=== PATIENT | male | born 1965 | race Caucasian/White ===

== ENCOUNTER 2020-03-09 12:30 | Emergency (ER) | payer MEDICAID, SELFPAY ==
[~2020-03-09 12:30] MED LIST: Dextrose 5 % And 0.9 % NaCl 1000 ml Bag ONE; Iopamidol 370 76% 100 ML VIAL ONE; Sodium Chloride 0.9% 1,000 ML BAG ONE
[2020-03-09 14:07] LABS: #Basophils 0.1 thou/uL (0.0-0.2); #Eosinphils 0.1 thou/uL (0.0-0.7); #Lymphocytes 1.4 thou/uL (1.20-3.40); #Monocytes 0.9 thou/uL (0.11-0.59); #Neutrophils 11.8 thou/uL (1.40-6.50); %Basophils 0.7 % (0.0-1.0); %Eosinophils 0.4 % (0.0-10.0); %Lymphocytes 9.6 % (21.0-51.0); %Monocytes 6.1 % (0.0-10.0); %Neutrophils 83.2 % (42.0-75.0); Hemoglobin 17.6 g/dL (14.0-18.0); Mean Corpuscular HGB CONC 31.8 g/dL (32.0-36.0); Mean Corpuscular Hemoglobin 31.8 pg (27.0-31.0); Mean Platelet Volume 6.8 fL (7.4-10.4); Platelet Count 273 thou/uL (130-400); RBC Distribution Width 12.6 % (11.5-14.5); Red Blood Cell (RBC) Count 5.54 mill/uL (4.70-6.10); White Blood Cell (WBC) Count 14.2 thou/uL (4.8-10.8)
--- NOTE | 2020-03-09 14:08 | RAD ---
EXAM: Single view of the chest HISTORY: Cough COMPARISON: None FINDINGS: Single view of the chest shows a normal sized cardiomediastinal silhouette. Hyperexpansion of the lungs is likely secondary to COPD. Emphysematous changes are seen in the lung apices. There is no evidence of consolidation, mass, or pleural effusion. The bones are unremarkable IMPRESSION: No evidence of acute cardiopulmonary disease
[2020-03-09 14:21] LABS: ALT (SGPT) 9 U/L (8-55); AST (SGOT) 15 U/L (5-34); Albumin 3.9 g/dL (3.5-5.0); Alkaline Phosphatase 243 U/L (40-110); Anion Gap 15 mmol/L (10-20); BUN (Urea Nitrogen) 8 mg/dL (8.4-25.7); Bilirubin, Total 0.7 mg/dL (0.2-1.2); Calc. Creatinine Clearance 0 mL/min (70-130); Calcium 10.3 mg/dL (7.8-10.44); Carbon Dioxide 27 mmol/L (22-29); Chloride 101 mmol/L (98-107); Globulin 3.3 g/dL (2.4-3.5); Glucose 105 mg/dL (70-105); Potassium 4.1 mmol/L (3.5-5.1); Protein, Total 7.2 g/dL (6.0-8.3); Sodium 139 mmol/L (136-145)
--- NOTE | 2020-03-09 15:35 | CT ---
EXAM: CT of the chest without contrast HISTORY: Cough COMPARISON: None TECHNIQUE: Multiple contiguous axial images were obtained in a CT the chest without contrast. Coronal and sagittal reformats were performed. FINDINGS: HEART: Normal in size without focal cardiac abnormality. Atherosclerotic calcifications in the monterro[place] ry arteries and aorta. MEDIASTINUM: No hilar or mediastinal lymphadenopathy. Evaluation of the mediastinum is limited withou t IV contrast. LUNGS: Severe emphysematous changes are seen. A calcified granuloma is seen in the left apex. No foca l infiltrates, suspicious nodules, or suspicious masses. PLEURAL SPACE: No pneumothorax or pleural effusion. CHEST WALL SOFT TISSUES: Unremarkable OSSEOUS STRUCTURES: Degenerative changes in the spine. VISUALIZED SUBDIAPHRAGMATIC STRUCTURES: Unremarkable IMPRESSION: Severe emphysema without evidence of acute intrathoracic abnormality.
[2020-03-09 15:52] LABS: Bilirubin Small (Negative); Blood, Urine Negative (Negative); Glucose, Urine (Dipstick) Negative (Negative); Ketone, Urine Trace mg/dL (Negative); Leukocyte Negative (Negative); Nitrite Negative (Negative); Protein, Urine (Dipstick) Negative (Neg-Trace); Urobilinogen 0.2 mg/dL (Less than 2)
[2020-03-09 16:08] LABS: Clarity Hazy (Clear)
--- NOTE | 2020-03-09 16:34 | CT ---
CT NECK WITH CONTRAST: 03/09/20 INDICATION: Unable to swallow. History of neck cancer. There are no comparison studies. FINDINGS: Parotid glands and submandibular glands appear symmetric. Thyroid unremarkable. Nasopharynx unremarka ble. Base of tongue unremarkable. Jelm tonsils unremarkable. In the hypopharynx there is diffuse mucosal enhancement with associated mass involving the vallecula, aryepiglottic folds, and epiglottis. This enhancing mass extends inferiorly into the supraglottic r egion and to the larynx possibly involving the vocal cords. This mass appears to erode through the th yroid cartilage anteriorly on the right and extends into the subcutaneous tissues of the right neck a long the outer portion of the right thyroid cartilage. There is parapharyngeal edema and retropharyngeal edema in the hypopharynx. This results in airway na rrowing in the hypopharynx and supraglottic regions. There is pathologic adenopathy on the left with a large pathologic lymph node at level II on the left measuring 3 to 4 cm AP dimension. Prominent hypertrophic degenerative changes of the cervical spine seen with large bridging osteophyte throughout the cervical vertebrae. The paranasal sinuses appear c lear as visualized. IMPRESSION: Abnormal mucosal enhancement and associated heterogeneous mass involving the hypopharynx beginning at the vallecula and involving the aryepiglottic folds and epiglottis and extending inferiorly surround ing the parapharyngeal space and encompassing the supraglottic region and larynx. There appears to b e involvement of vocal cords. Extensive of this enhancing mass through the thyroid cartilage anterior ly on the right. Findings are consistent with recurrent and/or progression of neoplasm given history of neck cancer. There is associated pathologic adenopathy on the left. POS: AGW
== END 2020-03-09 17:05 | disposition short-term general hospital (02) ==
LOC: MADERS 12:30
DX: C14.0 Malignant neoplasm of pharynx, unspecified (principal); J43.9 Emphysema, unspecified; F32.9 Major depressive disorder, single episode, unspecified; F17.200 Nicotine dependence, unspecified, uncomplicated
CPT/HCPCS: 70491; 71045; 71250; 80053; 81003; 83605; 84484; 85025; 86140; 87086; 96360; 96361; J7042; J7050; Q9967

== ENCOUNTER 2020-07-22 02:47 | Emergency (ER) | payer MEDICAID, OTHER ==
--- NOTE | 2020-07-22 07:42 | RAD ---
XR Chest 1 View Portable History: Chest pain Comparison: Radiograph March 2020 Findings: Background lung hyperinflation. No confluent airspace consolidation, pneumothorax or effusi on. Large bulla both upper lobes. Left upper lobe suture. Tracheostomy tube tip in good position. Impression: No acute intrathoracic abnormality.
== END 2020-07-22 04:16 | disposition short-term general hospital (02) ==
LOC: MADERS 02:47
DX: J95.03 Malfunction of tracheostomy stoma (principal); J44.9 Chronic obstructive pulmonary disease, unspecified; F17.200 Nicotine dependence, unspecified, uncomplicated; Z85.21 Personal history of malignant neoplasm of larynx
CPT/HCPCS: 71045